=== PATIENT | female | born 1945 | race Two or more races ===

== ENCOUNTER 2018-09-04 18:15 | Emergency (ER) | payer OTHER ==
[~2018-09-04] VITALS: Ht 152.4 cm; Wt 78.0 kg
[~2018-09-04 18:15] MED LIST: ATENOLOL50 MG
== END 2018-09-04 21:26 | disposition home or self-care (01) ==
LOC: ER 18:15
DX: G89.11 Acute pain due to trauma (principal); M25.551 Pain in right hip; M54.41 Lumbago with sciatica, right side

== ENCOUNTER 2023-01-28 08:31 | Outpatient (CLI) | payer OTHER | END 2023-01-28 08:38 | disposition home or self-care (01) | LOC: RX STUDY 08:31 | DX: R13.14 Dysphagia, pharyngoesophageal phase (principal) ==